=== PATIENT | female | born 1970 | race Caucasian/White ===

== ENCOUNTER 2016-12-03 13:27 | Emergency (ER) | payer MEDICAID ==
[2016-12-03 13:38] VITALS: BP 164/79; PULSE 82; TEMP 98.1; BMI 46.0
--- NOTE | 2016-12-03 14:35 | EDPRACDOC ---
- General Information Chief Complaint: Eye Problems Stated Complaint: RT EYE SWOLLEN SHUT ? CONTACT SCRATCHED EYE Time Seen by Provider: 12/03/16 13:52 Information Source: Patient Mode Of Arrival: Car Home Medications: Home Medications Gentamicin Sulfate 3.5 gm OD BID #1 oint...g. 12/03/16 Allergies/Adverse Reactions: Allergies Allergy/AdvReac Type Severity Reaction Status Date / Time No Known Allergies Allergy Verified 12/03/16 14:13 - History of Present Illness Onset: today HPI: PT PRESENTS TODAY WITH REDNESS/SWELLING/PAIN TO RIGHT EYE SINCE THIS MORNING. STATES HER EYE FELT VERY SCRATCHY LAST NIGHT. DENIES FEVER, DISCHARGE, [place]. MILD PHOTOPHOBIA AND TEARING. NO APPARENT DISTRESS. Eye Symptoms: Reports: Discomfort, Itching, Tearing, Redness Symptoms: Moderate Associated Signs and Symptoms:: Reports: Tearing, Photophobia ED Past Medical History - History Reviewed Yes Nurses notes reviewed and agree except as marked - Patient Medical History Psychological History: Denies: Depression Surgical History: Denies: Hysterectomy - Social Medical History Smoking Status: Heavy tobacco smoker (5 or more cigarettes/day or daily pipe/ cigar) EDM Review of Systems - Review of Systems ROS Negative Except as Marked: Yes All systems reviewed and were negative except as marked Constitutional: No Symptoms Reported Eyes: Pain, Redness Ears: No Symptoms Reported Throat: No Symptoms Reported Nose: No Symptoms Reported Respiratory: No Symptoms Reported Cardiovascular: No Symptoms Reported Gastrointestinal: No Symptoms Reported Neurological: No Symptoms Reported Musculoskeletal: No Symptoms Reported Integumentary: No Symptoms Reported - Physical Exam Constitutional: Alert (Awake), No apparent distress Oriented to: Time, Person, Place Last recorded Vital Signs: Last Vital Signs Temp 98.1 F 12/03/16 13:38 Pulse 82 12/03/16 13:38 Resp 18 12/03/16 13:38 BP 164/79 12/03/16 13:38 Pulse Ox 96 12/03/16 13:38 Oxygen Pulse Oxygen Saturation 96 O2 Device Oxygen Flow Rate Fraction of Inspired Oxygen ( FIO2) - HEENT Head: Normal Eye Exam: Conjunctival Injection, Other (MILD TEARING; PERRL; EOMI W/OUT PAIN; NO SWELLING TO PERIORBITAL AREA;) Oropharynx: Normal Tympanic Membrane: Normal ENT EAC: Normal Nose: No Symptoms Reported Neck: Normal, Denies Pain, Midline - Respiratory/Cardiovascular Respiratory: Normal - CTA Cardiovascular: Normal - GI Palpation: Normal Tenderness: Non tender - Musculoskeletal Back: Normal Extremities: Normal - Integumentary Skin: Normal Lymphatics: Normal - Neurologic Cerebellar: Normal Mood Description: Normal Thought: Coherent Perception: Normal ED Eye Problem Exam Eye Exam: right eye: conjunctival inflammation, left eye: normal inspection, bilateral eye: PERRL, EOMI Eye Discharge: Clear Decision Time to Discharge: 14:34 - Departure Disposition: Home Condition: Good Final Diagnosis: Conjunctivitis Instructions: Conjunctivitis (ED) Education/Counseling Given To: Patient Education/Counseling Given Regarding: Diagnosis, Treatment, Follow Up Referrals: Anne Lux PA [Primary Care Provider] - One Week Prescriptions: Gentamicin Sulfate 3.5 gm OD BID #1 oint...g. Additional Instructions: TRY NOT TO TOUCH EYE. WASH HANDS FREQUENTLY. RETURN TO ED FOR ANY WORSE/ CONCERNING SYMPTOMS.
== END 2016-12-03 14:39 | disposition home or self-care (01) ==
LOC: ED 13:27
DX: H10.9 Unspecified conjunctivitis (principal)
CPT/HCPCS: 99282